=== PATIENT | female | born 2000 | race Caucasian/White ===

== ENCOUNTER 2023-10-16 11:55 | Emergency (ER) | payer OTHER, SELFPAY ==
[2023-10-16 12:01] VITALS: BP 102/74; PULSE 154; RESP 24; TEMP 36.7; O2SAT 97; BMI 34.3
[2023-10-16 12:20] VITALS: BP 161/101; PULSE 115; O2SAT 97
--- NOTE | 2023-10-16 12:20 | ED_ITS ---
HPI - Abdominal Pain General Chief Complaint: Abdominal Pain Stated Complaint: Abdominal pain Time Seen by Provider: 10/16/23 11:58 History of Present Illness HPI narrative: This 23-year-old female comes in reporting abdominal pain that began last night. She states that she was able to sleep okay but read occurred this morning. The pain is located more in the right lower quadrant. She reports dysuria symptoms of increased urgency but unable to void much. She did void urine this morning and arrives here with bladder scan showing just 40 mL of urine in the bladder. She has had some nausea but no vomiting. She does not report any fevers. She arrives with tachycardia of likely due to anxiety regarding her symptoms. Related Data Previous Rx's Medication Instructions Recorded hydrocodone 5 mg-acetaminophen 325 1 tab PO Q4-6H PRN pain #15 tabs 10/16/23 mg tablet ketorolac 10 mg tablet 10 mg PO TID 5 days #15 tabs 10/16/23 ondansetron HCl 4 mg tablet 4 mg PO Q6H #10 tabs 10/16/23 Allergies Allergy/AdvReac Type Severity Reaction Status Date / Time amoxicillin Allergy Unknown Verified 10/16/23 12:04 Review of Systems Status of ROS Reports: 10 or more systems reviewed and unremarkable except as noted in History and below Narrative Constitutional: No fevers, no weight gain or loss. Eyes: No discharge. No vision changes. HENT: No congestion, no sore throat, no ear pain. Cardiovascular: No chest pain, no palpitations. Respiratory: No shortness of breath, no wheezes, no cough. Gastrointestinal: No vomiting, no diarrhea. Abdominal pain as described above. Genitourinary: No hematuria. Increased urgency and frequency but unable to void much. Musculoskeletal: Normal range of motion. Skin: No rashes, no pruritis. Neurological: No dizziness, weakness, sensory change, speech change. Endo/Heme/Allergies: No bruising or bleeding. No polydipsia. Pysch: no suicidality, no anxiety, no insomnia. All other systems reviewed and are negative. PFSH PFSH Social History Smoking Status: Former smoker How often do you have a drink containing alcohol: monthly or less How often do you have six or more drinks on one occasion: Never AUDIT-C Alcohol total score: 1 Non-prescribed substance use: denies use Exam Narrative: Exam Narrative: Constitutional: Well-developed, well-nourished, no acute distress. HEENT: Normocephalic, atraumatic. Neck: Normal range of motion. Nontender. Supple. Heart: Regular. No murmurs. Normal rate. Intact distal pulses. Lungs: Clear to auscultation. No chest discomfort. No wheezes, rhonchi, or rales. Abdomen: Normal bowel sounds. No rebound tenderness. Pain located in the lower abdomen right greater than left. No particular tenderness over McBurney's point. Genitalia: Deferred. Back: No midline tenderness. Normal range of motion. Extremities: Normal range of motion. No injury. Skin: Intact. No rash. Warm. No erythema or pallor. Neurologic: No altered sensation. No weakness. Alert and oriented. Psychiatric: No suicidality. No anxiety or depression. No insomnia. Nursing notes and vitals signs are reviewed. Const: Vital Signs, click to edit/add: Vital Signs - 24 hr 10/16/23 12:01 10/16/23 12:20 10/16/23 13:28 Temperature 98.1 F Pulse Rate Pulse Rate [Pulse Oximeter] 154 H 115 H 89 Respiratory Rate 24 Blood Pressure Blood Pressure [Ri ght Upper Arm] 102/74 161/101 H Pulse Oximetry 97 97 96 Oxygen Delivery Me thod Room Air Room Air Room Air 10/16/23 13:54 10/16/23 14:00 10/16/23 14:02 Temperature Pulse Rate 99 92 98 Pulse Rate [Pulse Oximeter] Respiratory Rate Blood Pressure 133/71 Blood Pressure [Ri ght Upper Arm] Pulse Oximetry 96 96 97 Oxygen Delivery Me thod Course Vital Signs Vital signs: Initial Vital Signs Temperature 98.1 F 10/16/23 12:01 Temperature Source Temporal Artery Scan 10/16/23 12:01 Pulse Rate 154 H 10/16/23 12:01 Respiratory Rate 24 10/16/23 12:01 Blood Pressure 102/74 10/16/23 12:01 Blood Pressure Mean 83 10/16/23 12:01 Blood Pressure Position Sitting 10/16/23 12:01 Pulse Oximetry 97 10/16/23 12:01 Oxygen Delivery Method Room Air 10/16/23 12:01 Vital Signs Temperature 98.1 F 10/16/23 12:01 Pulse Rate 154 H 10/16/23 12:01 Respiratory Rate 24 10/16/23 12:01 Blood Pressure 102/74 10/16/23 12:01 Pulse Oximetry 97 10/16/23 12:01 Oxygen Delivery Method Room Air 10/16/23 12:01 Temperature 98.1 F 10/16/23 12:01 Pulse Rate 98 10/16/23 14:02 Respiratory Rate 10/16/23 12:01 Blood Pressure 133/71 10/16/23 14:02 Pulse Oximetry 97 10/16/23 14:02 Oxygen Delivery Method Room Air 10/16/23 13:28 Medications Administered Medications: Discontinued Medications Generic Name Dose Route Start Last Admin Trade Name Freq PRN Reason Stop Dose Admin Hydrocodone Bitart/Acetaminophen 1 tab 10/16/23 12:53 10/16/23 13:27 Hydrocodone-Acetamin 5-325 Mg 1 Tab PO 10/16/23 12:54 Not Given ONCE ONE Ketorolac Tromethamine 10 mg 10/16/23 12:53 10/16/23 13:27 Ketorolac 10 Mg Tablet PO 10/16/23 12:54 Not Given ONCE ONE Ketorolac Tromethamine 30 mg 10/16/23 13:07 10/16/23 13:27 Ketorolac 30 Mg/Ml Inj IVP 10/16/23 13:08 30 mg ONCE ONE Administration Ondansetron HCl 4 mg 10/16/23 13:07 10/16/23 13:27 Ondansetron 2 Mg/Ml Inj IVP 10/16/23 13:08 4 mg ONCE ONE Administration MDM - Abdominal Pain MDM Narrative Medical decision making narrative: this patient comes in with right-sided abdominal pain that began last night. She also reports some dysuria symptoms. On exam her abdomen was not tender to palpation. Urinalysis initially showed no sign of infection but there was microscopic hematuria. I recommended CT imaging without contrast as the patient is suspicious for ureteral calculus. This returns with evidence of a 2 mm stone at the ureterovesical junction. The patient did receive IV doses of Toradol 30 mg and Zofran 4 mg. This brought sufficient relief to her pain. She is okay to be discharged home and received prescriptions for Toradol, [place], and Zofran. Lab Data Labs: Lab Results 10/16/23 10/16/23 Range/Units 12:25 Unknown Urine Color Yellow (Yellow) Urine Appearance Slightly Cloudy A (Clear) Urine pH 5.5 (5.0-8.5) Ur Specific [place] >= 1.030 (1.000-1.030) Urine Protein 1+ A (Negative) Urine Glucose (UA) Negative (Negative) Urine Ketones Negative (Negative) Urine Blood 3+ A (Negative) Urine Nitrite Negative (Negative) Urine Bilirubin Negative (Negative) Urine Urobilinogen 0.2 (0.2-1.0) Ur Leukocyte Esterase Negative (Negative) Urine RBC 10-25 A (0-2) Urine WBC 0-2 (0-5) Ur Squamous Epith Cells Moderate A (None-Few) Urine Bacteria Moderate A (None) Urine HCG, Qual Negative (Negative) Imaging Data CT scan - abdomen: Radiologist's impression: Right ureterovesical junction calculus measuring 2 mm with mild right hydroureteronephrosis. Discharge Plan Discharge Clinical Impression: Calculus, ureteral Patient Disposition: Home, Self-Care Condition: Improved Additional Instructions: take medication as prescribed. Follow up with MD or return if worsening. Prescriptions: New hydrocodone-acetaminophen 5-325 mg tablet 1 tab PO Q4-6H PRN (Reason: pain) Qty: 15 0RF ondansetron HCl 4 mg tablet 4 mg PO Q6H Qty: 10 0RF ketorolac 10 mg tablet 10 mg PO TID 5 Days Qty: 15 0RF Follow Up/Referrals: Kristina Power MD [Primary Care Provider] - Stand Alone Forms: [facility] Info Instructions
[2023-10-16 12:33] LABS: Appearance Urine Slightly Cloudy (Clear); Bilirubin Urine Negative (Negative); Blood Urine 3+ (Negative); Color Urine Yellow (Yellow); Glucose Urine Negative (Negative); Ketones Urine Negative (Negative); Leukocyte Esterase Urine Negative (Negative); Nitrite Urine Negative (Negative); Protein Urine 1+ (Negative); Specific Gravity Urine >= 1.030 (1.000-1.030); Urobilinogen Urine 0.2 (0.2-1.0); pH Urine 5.5 (5.0-8.5)
[2023-10-16 12:47] LABS: Bacteria Urine Moderate; Squamous Epithelial Cell Urine Moderate (None-Few); WBC Urine 0-2 (0-5)
--- NOTE | 2023-10-16 12:53 | CRLHL7_ITS ---
For Patients: As a result of the Century Cures Act, medical imaging exams and procedure reports are released immediately into your electronic medical record. You may view this report before your referring provider. If you have questions, please contact your health care provider. INDICATION: Right abdominal/flank pain. TECHNIQUE: CT abdomen and pelvis without contrast. COMPARISON: None available. FINDINGS: Lower chest: Unremarkable. Liver: Unremarkable for unenhanced technique. Gallbladder and bile ducts: No stones or inflammation. No biliary dilatation. Pancreas: Unremarkable for unenhanced technique. Spleen: Unremarkable for unenhanced technique. Adrenal glands: Normal in size. No nodules. Kidneys: There is a 2 mm right ureterovesical junction calculus resulting in mild right hydroureteronephrosis. No left hydronephrosis or nephroureterolithiasis. GI tract: Unremarkable. Normal in caliber. No sign of mass or inflammation. Normal appendix. Vasculature: Abdominal aorta is normal in caliber. Lymph nodes: No lymphadenopathy. Peritoneum/Abdominal Wall: Small fat containing umbilical hernia. No intraperitoneal free air. Trace pelvic free fluid, likely physiologic. Pelvis: The bladder is decompressed. Otherwise unremarkable. Bones: Unremarkable for age. IMPRESSION: Right ureterovesical junction calculus measuring 2 mm with mild right hydroureteronephrosis. Please note that all CT scans at this facility use dose modulation, iterative reconstruction, and/or weight-based dosing when appropriate to reduce radiation dose to as low as reasonably achievable. Dictated by Ethel Ware MD @ 10/16/2023 2:07:00 PM (Electronically Signed)
[2023-10-16 13:10] LABS: Ur HCG Qualitative* Negative (Negative)
[2023-10-16] MEDS: ONDANSETRON 2 MG/ML inj 4 MG IVP (13:27)
[2023-10-16] MEDS: KETOROLAC 30 MG/ML inj IVP (13:27)
[2023-10-16 13:28] VITALS: PULSE 89; O2SAT 96
[2023-10-16 13:54] VITALS: PULSE 99; O2SAT 96
[2023-10-16 14:00] VITALS: PULSE 92; O2SAT 96
[2023-10-16 14:02] VITALS: BP 133/71; PULSE 98; O2SAT 97
== END 2023-10-16 14:32 | disposition home or self-care (01) ==
PROVIDERS: Emergency Provider Emergency Medicine Emergency Medical Services; PCP Pediatrics
DX: N20.1 Calculus of ureter (principal)
CPT/HCPCS: 74176; 81001; 81025; 87086; 96374; 96375; 99283; 99284; J1885; J2405